=== PATIENT | male | born 1985 | race Caucasian/White ===

== ENCOUNTER 2018-03-15 21:35 | Emergency (ER) | payer MEDICAID ==
[2018-03-15] MEDS ORDERED: HYDROmorphone 1 MG/ML Syringe IVPUSH ONE (22:08)
--- NOTE | 2018-03-15 22:08 | EDM.PDOC ---
ED HPI GENERAL MEDICAL PROBLEM - General Chief Complaint: Lower Extremity Injury/Pain Stated Complaint: post op knee pain Time Seen by Provider: 03/15/18 21:45 Source of Information: Reports: Patient History Limitations: Reports: No Limitations - History of Present Illness INITIAL COMMENTS - FREE TEXT/NARRATIVE: 32 YO WM s/p right TKA yesterday presents to ER with complaints of uncontrolled pain in surgical knee. Pt reports he was discharged from the hospital today around 1pm with oxcycodone 10mg and valium 5mg for pain control. Pt reports his pain level began to increase approximately 2 hours later. Pt reports he last took his oxycodone around 5:30pm and valium around 9:30 but pain continued to increase prompting ER evaluation. Pt spoke with television tube inspector nurse who suggested he come to ER. Pt reports significant swelling to knee joint. Pt reports ice/ elevation/rest without improvement. Onset: Today Location: Reports: Lower Extremity, Right Quality: Reports: Ache Severity: Severe Improves with: Reports: None Worsens with: Reports: Movement Associated Symptoms: Reports: No Other Symptoms Right Knee Pain Score (Numeric/FACES): 12 - Related Data Allergies Allergy/AdvReac Type Severity Reaction Status Date / Time No Known Allergies Allergy Verified 03/15/18 21:35 Home Meds: Home Meds Aspirin [Lo-Dose Aspirin EC] 1 tab PO BID 03/15/18 [History] Diazepam [Valium] 5 mg PO Q6HR 03/15/18 [History] oxyCODONE HCl [Oxycodone HCl] 10 mg PO Q3HR PRN 03/15/18 [History] Social & Family History - Tobacco Use Smoking Status *Q: Former Smoker Used Tobacco, but Quit: Yes Month/Year Tobacco Last Used: 02/2018 Tobacco Use Comment: pt states quit smoking 3 days ago. - Recreational Drug Use Recreational Drug Use: Yes Recreational Drug Type: Reports: Marijuana/Hashish Review of Systems - Review of Systems Review Of Systems: See Below Constitutional: Reports: No Symptoms Eyes: Reports: No Symptoms Ears: Reports: No Symptoms Nose: Reports: No Symptoms Mouth/Throat: Reports: No Symptoms Respiratory: Reports: No Symptoms Cardiovascular: Reports: No Symptoms GI/Abdominal: Reports: No Symptoms Genitourinary: Reports: No Symptoms Musculoskeletal: Reports: Joint Pain, Joint Swelling Neurological: Reports: No Symptoms Psychiatric: Reports: No Symptoms ED EXAM, GENERAL - Physical Exam Exam: See Below Exam Limited By: No Limitations General Appearance: Alert, WD/WN, Mild Distress Head: Atraumatic, Normocephalic Neck: Normal Inspection, Supple, Non-Tender, Full Range of Motion Respiratory/Chest: No Respiratory Distress, Lungs Clear, Normal Breath Sounds, No Accessory Muscle Use, Chest Non-Tender Cardiovascular: Normal Peripheral Pulses, Regular Rate, Rhythm, No Edema, No Gallop, No JVD, No Murmur, No Rub GI/Abdominal: Normal Bowel Sounds, Soft, Non-Tender, No Organomegaly, No Distention, No Abnormal Bruit, No Mass Back Exam: Normal Inspection, Full Range of Motion, NT Extremities: Joint Swelling, Increased Warmth Neurological: Alert, Oriented, CN II-XII Intact, Normal Cognition, Normal Gait, Normal Reflexes, No Motor/Sensory Deficits Psychiatric: Normal Affect, Normal Mood Skin Exam: Warm, Dry, Intact, Normal Color, No Rash Lymphatic: No Adenopathy Course - Vital Signs Last Recorded V/S: Last Vital Signs Temp 36.6 C 03/15/18 21:36 Pulse 78 03/15/18 21:36 Resp 20 03/15/18 21:36 BP 147/76 H 03/15/18 21:36 Pulse Ox 98 03/15/18 21:36 Departure - Departure Time of Disposition: 22:23 Disposition: Home, Self-Care 01 Condition: Good Clinical Impression: Postoperative pain of right knee - Discharge Information Instructions: Knee Pain, Adult, [id number], Cryotherapy, [id number], Authorized Agent-Controlled Analgesia Additional Instructions: 1. discharge home 2. continue oxycodone/valium 3. add motrin 800mg PO TID 4. if pain continues recommend follow up with ortho in [place] 5. rest/ice/elevation - Assessment/Plan Assessment:: 1. post op knee pain Plan: 1. discharge home 2. continue oxycodone/valium 3. add motrin 800mg PO TID 4. if pain continues recommend follow up with ortho in [place] 5. rest/ice/elevation
[2018-03-15] MEDS ORDERED: LORazepam 2 MG/ML SDV IVPUSH ONE (22:30)
[2018-03-15] MEDS ORDERED: Ketorolac 30 MG/ML SDV IVPUSH ONE (22:30)
== END 2018-03-15 22:55 | disposition home or self-care (01) ==
LOC: KA.ED 21:35
DX: G89.18 Other acute postprocedural pain (principal); M25.561 Pain in right knee; Z79.82 Long term (current) use of aspirin; Z79.899 Other long term (current) drug therapy; Z87.891 Personal history of nicotine dependence; Z98.890 Other specified postprocedural states
CPT/HCPCS: 96374; 96375; 99283; J1170; J1885; J2060